=== PATIENT | male | born 1965 | race Caucasian/White ===

== ENCOUNTER → 2016-03-15 | Outpatient (CLI) | payer OTHER ==
[2016-03-15 13:04] LABS: BUN 17 mg/dL (7-18)
[2016-03-15 13:07] LABS: GFR (ESTIMATED) 64 ML/MIN (>60)
--- NOTE | 2016-03-16 13:58 | RADIOLOGY REPORT PS360 ---
MRI-BRAIN W/WO HISTORY: Severe left-sided headache with lightheadedness, dizziness HEADACHE COMPARISON: None TECHNIQUE: Standard multiplanar multiecho sequences are performed without and with contrast. FINDINGS: No midline shift, mass effect, intracranial hemorrhage, or fibrous deficits evident. Unremarkable diffusion images. No evidence of acute infarction. No enhancing lesions apparent. No abnormal white matter signal intensity. The cerebellopontine angles, cerebellum, and brainstem are unremarkable. The pituitary and corpus callosum are unremarkable. The hippocampal structures are unremarkable. The temporal horns are symmetric. No cerebellar tonsillar ectopia. No mastoid effusion or sinus air-fluid level is evident. IMPRESSION: Negative MRI brain without and with contrast.
== END ==
LOC: RAD 12:30
PROVIDERS: Physician Assistant
DX: R51 Headache (principal)
CPT/HCPCS: A9576